=== PATIENT | male | born 1975 | race Hispanic/Latino ===

== ENCOUNTER 2017-06-03 23:13 | Observation (INO) | payer SELFPAY ==
--- NOTE | 2017-06-03 23:53 | RAD ---
PORTABLE CHEST: History: Chest pain and shortness of breath. Comparison: 08-20-10 FINDINGS: Heart size and mediastinum are within normal limits. The lungs are clear of infiltrates. IMPRESSION: No active intrathoracic disease. POS: [facility]
[2017-06-04 00:18] LABS: #Eosinphils 0.1 thou/uL (0.0-0.7); #Lymphocytes 1.6 thou/uL (1.20-3.40); #Monocytes 0.6 thou/uL (0.11-0.59); #Neutrophils 4.8 thou/uL (1.40-6.50); %Basophils 0.4 % (0.0-1.0); %Eosinophils 1.1 % (0.0-10.0); %Lymphocytes 22.9 % (21.0-51.0); %Monocytes 8.3 % (0.0-10.0); %Neutrophils 67.2 % (42.0-75.0); Hemoglobin 15.3 g/dL (14.0-18.0); Mean Corpuscular HGB CONC 36.7 g/dL (32.0-36.0); Mean Corpuscular Hemoglobin 33.2 pg (27.0-31.0); Mean Corpuscular Volume 90.5 fl (80.0-94.0); Mean Platelet Volume 8.2 fL (7.4-10.4); Platelet Count 151 thou/uL (130-400); RBC Distribution Width 11.3 % (11.5-14.5); Red Blood Cell (RBC) Count 4.59 mill/uL (4.70-6.10); White Blood Cell (WBC) Count 7.1 thou/uL (4.8-10.8)
[2017-06-04 00:30] LABS: ALT (SGPT) 28 U/L (8-55); AST (SGOT) 21 U/L (5-34); Albumin 3.9 g/dL (3.5-5.0); Alkaline Phosphatase 98 U/L (40-150); Anion Gap 13 mmol/L (10-20); BUN (Urea Nitrogen) 11 mg/dL (8.9-20.6); Bilirubin, Total 0.5 mg/dL (0.2-1.2); CK (CPK) 35 U/L (30-200); Calc. Creatinine Clearance 0 mL/min (70-130); Calcium 8.7 mg/dL (7.8-10.44); Carbon Dioxide 22 mmol/L (22-29); Chloride 106 mmol/L (98-107); Estimated GFR-MDRD Greater than 90; Globulin 3.1 g/dL (2.4-3.5); Glucose 319 mg/dL (70-105); Potassium 3.9 mmol/L (3.5-5.1); Sodium 137 mmol/L (136-145)
[2017-06-04 00:33] LABS: CKMB 0.5 ng/mL (0-6.6); Troponin I Less than 0.010 ng/mL (< 0.028)
[2017-06-04 04:20] LABS: Troponin I Less than 0.010 ng/mL (< 0.028)
[2017-06-04] MEDS ORDERED: Acetaminophen 325 MG TAB PO PRN (04:36)
[2017-06-04] MEDS ORDERED: Ondansetron ODT 4 MG TAB SL PRN (04:36)
[2017-06-04] MEDS ORDERED: Ondansetron HCl/PF 4 MG/2 ML Vial IVP PRN (04:36)
[2017-06-04 05:39] VITALS: BMI 26.5
[2017-06-04 07:12] LABS: Troponin I 0.013 ng/mL (< 0.028)
--- NOTE | 2017-06-04 11:48 | NM ---
CARDIAC SPECT: HISTORY: A 42-year-old male with chest pain, diabetes mellitus. TECHNIQUE: A myocardial perfusion scan was performed using the single-isotope 1-day protocol with Technetium 99m sestamibi. 11 mCi were injected intravenously for the rest exam followed by 32 mCi for the stress s tudy. Exercise stress was monitored and interpreted by Amarjit Vargas, Nurse Practitioner. FINDINGS: Homogeneous tracer distribution is seen in the myocardial segments on stress and rest images without fixed or reversible defects. GATED SPECT LVEF: 82%. WALL MOTION EXAM: Normal. IMPRESSION: Normal myocardial perfusion scan. POS: [facility]
[2017-06-04 12:30] VITALS: BP 131/74; TEMP 98.4
[2017-06-04] MEDS ORDERED: Dextrose 50% Abboject 50 ML SYRINGE SLOW IVP PRN (13:21)
[2017-06-04] MEDS ORDERED: Insulin Regular 300 UNITS/3 ML VIAL SC PRN ×2 (13:21)
[2017-06-04] MEDS ORDERED: Dextrose 5% in Water 1,000 ML IV PRN (13:21)
[2017-06-04] MEDS ORDERED: glipiZIDE 5 MG TAB PO SCH (13:30)
--- NOTE | 2017-06-04 14:20 | SS ---
DATE OF ADMISSION: 06/04/2017 DATE OF DISCHARGE: 06/04/2017 PRIMARY CARE PHYSICIAN: [facility]. CHIEF COMPLAINT: Chest discomfort. HISTORY OF PRESENT ILLNESS: The patient is a 42-year-old male with a recent dental abscess, on clind amycin, presented to the emergency room with chest discomfort. The chest discomfort started around 1 0:30 p.m. while he was driving. It was pressure-like, substernal, associated with some shortness of breath and lightheadedness. He denies any passing out. No palpitations, fevers, chills, heartburn, dyspepsia, cough, shortness of breath, or wheezing reported. In the emergency room, his initial vital signs showed temperature 97.6 with respirations 17, pulse ra te of 100 with blood pressure 111/73. His initial blood sugar was 319. Patient has no history of di abetes. PAST MEDICAL HISTORY: Reviewed with the patient and none except for recent dental abscess, currently taking clindamycin PAST SURGICAL HISTORY: I and D of abscess in the left arm in the past. ALLERGIES: No known drug allergies. CURRENT HOME MEDICATION: Clindamycin for dental abscess. SOCIAL HISTORY: The patient currently lives at home. Denies any smoking, alcohol, or drug use. FAMILY HISTORY: Negative for premature coronary artery disease. REVIEW OF SYSTEMS: The following complete review of systems was negative, unless otherwise mentioned in the HPI or below: Constitutional: Weight loss or gain, ability to conduct usual activities. Sk in: Rash, itching. Eyes: Double vision, pain. ENT/Mouth: Nose bleeding, neck stiffness, pain, te nderness. Cardiovascular: Palpitations, dyspnea on exertion, orthopnea. Respiratory: Shortness of breath, wheezing, cough, hemoptysis, fever, or night sweats. Gastrointestinal: Poor appetite, abdo elyssa pain, heartburn, nausea, vomiting, constipation, or diarrhea. Genitourinary: Urgency, frequen cy, dysuria, nocturia. Musculoskeletal: Pain, swelling. Neurologic/Psychiatric: Anxiety, depressi on. Allergy/Immunologic: Skin rash, bleeding tendency. PHYSICAL EXAMINATION: VITAL SIGNS: As discussed above. GENERAL: A 42-year-old male in no apparent distress. HEENT: Head, atraumatic and normocephalic. Sclerae are anicteric. Moist mucous membranes. No oral lesion. NECK: Supple. No JVD appreciated. No carotid bruit. LUNGS: Clear to auscultation bilaterally. HEART: S1 and S2 present. Regular rate and rhythm. No murmurs, rubs, or gallops appreciated. ABDOMEN: Soft, nontender, bowel sounds present. EXTREMITIES: No edema or calf tenderness. NEUROLOGIC: Grossly nonfocal. Moves all 4 extremities. PSYCHIATRIC: Alert, awake, oriented x3. SKIN: Warm and dry. LYMPH NODES: No palpable lymph nodes in the neck. PERIPHERAL VASCULAR: Radial pulses palpable bilaterally. MUSCULOSKELETAL: No joint swelling or tenderness. LABORATORY FINDINGS: CBC showed WBC of 7.1 with hemoglobin of 15.3 and platelets 151. D-dimer was 0 .30. Troponins negative. LFTs in normal range. Chemistries showed sodium 137, potassium 3.9, chlor jeff 106, bicarbonate 22, BUN 11, creatinine 0.85. EKG, by my review, was negative for acute findings . It showed sinus rhythm. Chest x-ray, by my review, was negative for infiltrate or edema. IMPRESSION: Chest discomfort. The patient was admitted last night by the overnight physician and st ress test was already ordered. He underwent Cardiolite stress test that was negative for reversible ischemia. No wall motion abnormality. He is chest pain free at this time. IMPRESSION: 1. New onset diabetes mellitus, type 2. Hemoglobin A1c has been added to his morning laboratories. It is pending at this time. He has been started on glipizide and metformin. Side effects of medica tions will be discussed. Dietitian has been consulted for education. 2. Recent dental abscess, currently on antibiotic. 3. Suspected anxiety as a cause of chest pain. Primary care physician advised to follow. Plan of care was discussed with the patient in detail. He stated understanding. The patient will fo llow up with [facility]. Lifestyle modification and diabetic diet recommended. The patie nt and the family stated understanding.
[2017-06-04 15:44] LABS: Hemoglobin A1c 10.5 % (4.0-6.0)
[2017-06-04] MEDS ORDERED: metFORMIN 500 MG TAB PO SCH (17:00)
[2017-06-05] MEDS ORDERED: glipiZIDE 5 MG TAB PO SCH (07:30)
[2017-06-05] MEDS ORDERED: FLU VACC QS2017-18 36 mo. & older 0.5 ML SYRINGE IM ONE (09:00)
--- NOTE | 2017-06-08 13:47 | EKG ---
Test Reason : Blood Pressure : / mmHG Vent. Rate : 097 BPM Atrial Rate : 097 BPM P-R Int : 152 ms QRS Dur : 086 ms QT Int : 344 ms P-R-T Axes : 044 -23 006 degrees QTc Int : 436 ms Normal sinus rhythm Normal ECG Confirmed by NIYAH BHATTI ([id number]), editorial project manager JOSÉ SOSA ([id number]) on 06/08/2017 1:47:05 PM Referred By: Confirmed By:NIYAH BHATTI
== END 2017-06-04 15:58 | disposition home or self-care (01) ==
LOC: ERS 23:13 → 2SW 06-04 03:20
PROVIDERS: ADMIT Family Medicine; ATTEND Family Medicine
DX: R07.89 Other chest pain (principal); K04.7 Periapical abscess without sinus; E11.9 Type 2 diabetes mellitus without complications; Z79.2 Long term (current) use of antibiotics; Z98.890 Other specified postprocedural states
CPT/HCPCS: 36415; 36416; 71045; 78452; 80053; 82553; 83036; 84484; 85025; 85379; 93005; 93017; A9500; G0378

== ENCOUNTER 2017-06-28 18:26 | Emergency (ER) | payer SELFPAY ==
[2017-06-28 18:56] LABS: #Eosinphils 0.1 thou/uL (0.0-0.7); #Lymphocytes 2.3 thou/uL (1.20-3.40); #Monocytes 0.4 thou/uL (0.11-0.59); %Basophils 0.4 % (0.0-1.0); %Lymphocytes 29.6 % (21.0-51.0); %Monocytes 5.5 % (0.0-10.0); %Neutrophils 63.6 % (42.0-75.0); Hemoglobin 17.5 g/dL (14.0-18.0); Mean Corpuscular HGB CONC 34.8 g/dL (32.0-36.0); Mean Corpuscular Hemoglobin 32.2 pg (27.0-31.0); Mean Corpuscular Volume 92.6 fl (80.0-94.0); Platelet Count 168 thou/uL (130-400); RBC Distribution Width 11.8 % (11.5-14.5); Red Blood Cell (RBC) Count 5.43 mill/uL (4.70-6.10); White Blood Cell (WBC) Count 7.8 thou/uL (4.8-10.8)
[2017-06-28 19:10] LABS: ALT (SGPT) 49 U/L (8-55); AST (SGOT) 34 U/L (5-34); Albumin 4.8 g/dL (3.5-5.0); Alkaline Phosphatase 94 U/L (40-150); Anion Gap 14 mmol/L (10-20); BUN (Urea Nitrogen) 16 mg/dL (8.9-20.6); Bilirubin, Total 0.5 mg/dL (0.2-1.2); CK (CPK) 67 U/L (30-200); Calc. Creatinine Clearance 0 mL/min (70-130); Calcium 9.8 mg/dL (7.8-10.44); Carbon Dioxide 26 mmol/L (22-29); Chloride 100 mmol/L (98-107); Estimated GFR-MDRD 59; Globulin 3.8 g/dL (2.4-3.5); Glucose 294 mg/dL (70-105); Protein, Total 8.6 g/dL (6.0-8.3); Sodium 136 mmol/L (136-145)
--- NOTE | 2017-06-28 19:12 | RAD ---
PORTABLE CHEST: 06/28/17 HISTORY: Chest pain. Lungs are clear. Heart and mediastinum appear normal. Vasculature is normal. IMPRESSION: No evidence of acute abnormality. POS: [facility]
[2017-06-28 19:15] LABS: CKMB 1.2 ng/mL (0-6.6); Troponin I Less than 0.010 ng/mL (< 0.028)
== END 2017-06-28 21:25 | disposition home or self-care (01) ==
LOC: ERS 18:26
DX: R00.2 Palpitations (principal); E11.9 Type 2 diabetes mellitus without complications
CPT/HCPCS: 71045; 80053; 82553; 84484; 85025; 93005; 94760

== ENCOUNTER 2017-07-29 01:04 | Emergency (ER) | payer SELFPAY ==
[2017-07-29 01:46] LABS: Red Blood Cell (RBC) Count 4.91 mill/uL (4.70-6.10)
[2017-07-29 01:47] LABS: #Eosinphils 0.1 thou/uL (0.0-0.7); #Lymphocytes 2.4 thou/uL (1.20-3.40); #Monocytes 0.5 thou/uL (0.11-0.59); #Neutrophils 4.9 thou/uL (1.40-6.50); %Basophils 0.5 % (0.0-1.0); %Eosinophils 1.3 % (0.0-10.0); %Lymphocytes 30.1 % (21.0-51.0); %Monocytes 6.7 % (0.0-10.0); %Neutrophils 61.5 % (42.0-75.0); Hemoglobin 15.9 g/dL (14.0-18.0); Mean Corpuscular HGB CONC 35.7 g/dL (32.0-36.0); Mean Corpuscular Hemoglobin 32.4 pg (27.0-31.0); Mean Corpuscular Volume 90.8 fl (80.0-94.0); Mean Platelet Volume 7.6 fL (7.4-10.4); Platelet Count 162 thou/uL (130-400); RBC Distribution Width 11.5 % (11.5-14.5)
[2017-07-29 02:11] LABS: CKMB 0.7 ng/mL (0-6.6); Troponin I Less than 0.010 ng/mL (< 0.028)
[2017-07-29 02:14] LABS: ALT (SGPT) 36 U/L (8-55); AST (SGOT) 18 U/L (5-34); Albumin 4.1 g/dL (3.5-5.0); Alkaline Phosphatase 88 U/L (40-150); Anion Gap 14 mmol/L (10-20); BUN (Urea Nitrogen) 16 mg/dL (8.9-20.6); Bilirubin, Total 0.3 mg/dL (0.2-1.2); Calc. Creatinine Clearance 0 mL/min (70-130); Calcium 9.3 mg/dL (7.8-10.44); Carbon Dioxide 22 mmol/L (22-29); Chloride 103 mmol/L (98-107); Estimated GFR-MDRD 71; Globulin 2.9 g/dL (2.4-3.5); Glucose 352 mg/dL (70-105); Potassium 4.6 mmol/L (3.5-5.1); Sodium 134 mmol/L (136-145)
[2017-07-29 03:28] LABS: Bilirubin Negative (Negative); Blood, Urine Negative (Negative); Clarity CLEAR (Clear); Glucose, Urine (Dipstick) >=1000 mg/dL (Negative); Leukocyte Negative (Negative); Nitrite Negative (Negative); Protein, Urine (Dipstick) Negative (Neg-Trace); Specific Gravity, Urine 1.027 (1.002-1.036); Urobilinogen 0.2 mg/dL (0.2-1.0)
[2017-07-29] MEDS ORDERED: Insulin Regular 300 UNITS/3 ML VIAL ONE (03:29)
== END 2017-07-29 04:25 | disposition home or self-care (01) ==
LOC: ERS 01:04
DX: E11.65 Type 2 diabetes mellitus with hyperglycemia (principal)
CPT/HCPCS: 36415; 36416; 80053; 81003; 82010; 82553; 84484; 85025; 93005; 96361; 96374; J1815

== ENCOUNTER 2019-01-05 02:40 | Emergency (ER) | payer SELFPAY | END 2019-01-05 04:08 | disposition home or self-care (01) | LOC: ERS 02:40 | DX: K04.7 Periapical abscess without sinus (principal); E11.9 Type 2 diabetes mellitus without complications; L03.211 Cellulitis of face | CPT/HCPCS: 99283 ==

== ENCOUNTER 2024-05-01 04:03 | Inpatient (IN) | payer SELFPAY ==
[2024-05-01 06:10] LABS: #Basophils 0.03 10x3/uL (0.0-0.2); %Basophils 0.4 % (0.0-1.0); %Eosinophils 2.1 % (0.0-10.0); %Lymphocytes 19.7 % (21.0-51.0); %Monocytes 8.8 % (0.0-10.0); %Neutrophils 68.7 % (42.0-75.0); Hematocrit 39.7 % (42.0-52.0); Hemoglobin 14.3 g/dL (14.0-18.0); Mean Corpuscular Volume 85.9 fL (78.0-98.0); Mean Platelet Volume 10.3 fL (7.4-10.4); Platelet Count 169 10x3/uL (130-400); RBC Distribution Width 12.2 % (11.5-14.5); Red Blood Cell (RBC) Count 4.62 mill/uL (4.70-6.10)
[2024-05-01] MEDS ORDERED: Cefepime 2 GM VIAL ONE (06:16)
[2024-05-01] MEDS ORDERED: Sodium Chloride 0.9% 100 ML ONE (06:16)
[2024-05-01 06:22] LABS: Analyzer IN Cardio ER; Base Excess -1.4 mEq/L (-2.0 to +3.0); Calcium, Ionized (venous) 1.16 mmol/L (1.16-1.32); Chloride (VBG) 102 mmol/L (98-106); Hematocrit-VBG 47 % (42.0-52.0); Hemoglobin (Hb) 15.9 g/dL (13.1-17.2); Potassium (VBG) 4.13 mmol/L (3.70-5.30); Sodium 138 mmol/L (133-146); pH (venous) 7.367 (7.32-7.43)
[2024-05-01 06:28] LABS: ALT (SGPT) 19 U/L (8-55); AST (SGOT) 15 U/L (5-34); Albumin 3.6 g/dL (3.5-5.0); Alkaline Phosphatase 77 U/L (40-110); Anion Gap 12 mmol/L (10-20); BUN (Urea Nitrogen) 15 mg/dL (8.9-20.6); Bilirubin, Total 0.7 mg/dL (0.2-1.2); Calc. Creatinine Clearance 0 mL/min (70-130); Calcium 8.9 mg/dL (7.8-10.44); Carbon Dioxide 21 mmol/L (22-29); Chloride 106 mmol/L (98-107); Estimated GFR 108; Globulin 3.6 g/dL (2.4-3.5); Glucose 249 mg/dL (70-105); Magnesium 2.2 mg/dL (1.6-2.6); Potassium 4.2 mmol/L (3.5-5.1); Protein, Total 7.2 g/dL (6.0-8.3); Sodium 135 mmol/L (136-145)
[2024-05-01] MEDS ORDERED: Dextrose 50% Abboject 50 ML SYRINGE SLOW IVP PRN (09:18)
[2024-05-01] MEDS ORDERED: Senokot S 8.6-50 MG TAB PO PRN (09:18)
[2024-05-01] MEDS ORDERED: Dextrose 5% in Water 1,000 ML IV PRN (09:18)
[2024-05-01] MEDS ORDERED: Acetaminophen 325 MG TAB PO PRN (09:18)
[2024-05-01] MEDS ORDERED: Ketorolac Tromethamine 30 MG (1 mL) VIAL IVP PRN (09:18)
[2024-05-01] MEDS ORDERED: Glucagon 1 MG/ML KIT IM PRN (09:18)
[2024-05-01] MEDS ORDERED: Ondansetron ODT 4 MG TAB PO PRN ×2 (09:18→09:22)
[2024-05-01] MEDS ORDERED: Acetaminophen 650 MG Suppository PR PRN (09:18)
[2024-05-01] MEDS ORDERED: Calcium Carbonate 500 MG ChewTAB PO PRN (09:18)
[2024-05-01] MEDS ORDERED: Ondansetron PF 4 MG/2 ML Vial IVP PRN ×2 (09:18→09:23)
[2024-05-01] MEDS: Vancomycin (BATCH) 1.5 GM in Premix 1 BAG IVPB SCH (10:13)
[2024-05-01] MEDS: Cefepime 2 GM in Sodium Chloride 0.9% 100 ML IVPB SCH (16:38)
[2024-05-01] MEDS: Vancomycin (BATCH) 1.25 GM in Premix 1 BAG IVPB SCH (17:54)
[2024-05-01] MEDS: Insulin Lispro 100 UNIT/ML 10 ML VIAL SC PRN (17:57)
[2024-05-01] MEDS ORDERED: Cefepime 1 GM in Sodium Chloride 0.9% 100 ML IVPB SCH (18:00)
[2024-05-01] MEDS ORDERED: Vancomycin 1 GM in Premix 1 BAG IVPB SCH (21:00)
[2024-05-02 06:34] LABS: #Basophils 0.03 10x3/uL (0.0-0.2); %Basophils 0.4 % (0.0-1.0); %Eosinophils 2.2 % (0.0-10.0); %Lymphocytes 21.6 % (21.0-51.0); %Monocytes 7.4 % (0.0-10.0); %Neutrophils 68.1 % (42.0-75.0); Hematocrit 38.1 % (42.0-52.0); Hemoglobin 13.8 g/dL (14.0-18.0); Mean Corpuscular HGB CONC 36.2 g/dL (32.0-36.0); Mean Corpuscular Hemoglobin 31.4 pg (27.0-31.0); Mean Corpuscular Volume 86.8 fL (78.0-98.0); Mean Platelet Volume 10.3 fL (7.4-10.4); Platelet Count 175 10x3/uL (130-400); RBC Distribution Width 12.1 % (11.5-14.5); Red Blood Cell (RBC) Count 4.39 mill/uL (4.70-6.10)
[2024-05-02 06:57] LABS: Vancomycin, Random 10.9 ug/mL (See Comment)
[2024-05-02 07:00] LABS: Anion Gap 11 mmol/L (10-20); BUN (Urea Nitrogen) 15 mg/dL (8.9-20.6); Calc. Creatinine Clearance 114 mL/min (70-130); Calcium 8.6 mg/dL (7.8-10.44); Carbon Dioxide 21 mmol/L (22-29); Chloride 108 mmol/L (98-107); Estimated GFR 110; Glucose 259 mg/dL (70-105); Potassium 4.1 mmol/L (3.5-5.1); Sodium 136 mmol/L (136-145)
[2024-05-02] MEDS: Enoxaparin 40 MG (0.4 mL) SYRINGE SC SCH (08:31)
[2024-05-02 10:23] VITALS: BMI 23.5
[2024-05-02] MEDS: Acetaminophen 325 MG TAB PO PRN (16:22)
[2024-05-02] MEDS: metFORMIN 500 MG TAB PO SCH (16:23)
[2024-05-02] MEDS: Insulin Lispro 100 UNIT/ML 10 ML VIAL SC PRN (20:37)
[2024-05-03 06:11] LABS: Anion Gap 13 mmol/L (10-20); BUN (Urea Nitrogen) 16 mg/dL (8.9-20.6); Calc. Creatinine Clearance 105 mL/min (70-130); Calcium 8.9 mg/dL (7.8-10.44); Carbon Dioxide 22 mmol/L (22-29); Chloride 104 mmol/L (98-107); Estimated GFR 107; Glucose 250 mg/dL (70-105); Potassium 4.3 mmol/L (3.5-5.1); Sodium 135 mmol/L (136-145)
[2024-05-03] MEDS: glipiZIDE 5 MG TAB PO SCH ×2 (09:06→17:15)
[2024-05-04 07:20] LABS: Vancomycin, Random 32.1 ug/mL (See Comment)
[2024-05-04 08:29] VITALS: BP 107/71; TEMP 98
[2024-05-04] MEDS: FLU (Fluarix Triv) TS24-25(6MOS UP)/PF 45 MCG/0.5 ML Syringe IM ONE (08:34)
== END 2024-05-04 10:40 | disposition home or self-care (01) | DRG 603 ==
LOC: ERS 04:03 → T4-A 09:22 → OBSVTOIN 05-02 14:46
PROVIDERS: ADMIT Internal Medicine; ATTEND Family Medicine
DX: L03.115 Cellulitis of right lower limb (principal); E11.9 Type 2 diabetes mellitus without complications; Z79.899 Other long term (current) drug therapy
CPT/HCPCS: 36415; 36416; 80048; 80053; 80202; 82565; 82805; 83036; 83605; 83735; 85025; 87040; 93005; 96361; 96365; 96366; 96367; J0692; J1650; J1815; J3370

== ENCOUNTER 2025-03-25 15:53 | Emergency (ER) | payer SELFPAY ==
[2025-03-25 18:33] LABS: #Basophils 0.05 10x3/uL (0.0-0.2); #Eosinophils 0.12 10x3/uL (0.0-0.7); #Monocytes 0.59 10x3/uL (0.11-0.59); #Neutrophils 5.10 10x3/uL (1.40-6.50); %Basophils 0.6 % (0.0-1.0); %Eosinophils 1.5 % (0.0-10.0); %Lymphocytes 28.8 % (21.0-51.0); %Monocytes 7.1 % (0.0-10.0); %Neutrophils 61.8 % (42.0-75.0); Hematocrit 42.2 % (42.0-52.0); Hemoglobin 14.8 g/dL (14.0-18.0); Mean Corpuscular Hemoglobin 30.5 pg (27.0-31.0); Mean Corpuscular Volume 86.8 fL (78.0-98.0); Platelet Count 179 10x3/uL (130-400); Red Blood Cell (RBC) Count 4.86 mill/uL (4.70-6.10); White Blood Cell (WBC) Count 8.26 10x3/uL (4.8-10.8)
[2025-03-25 18:56] LABS: ALT (SGPT) 15 U/L (Less than 45); AST (SGOT) 21 U/L (11-34); Albumin 3.9 g/dL (3.1-4.5); Alkaline Phosphatase 95 U/L (40-110); Anion Gap 17 mmol/L (10-20); BUN (Urea Nitrogen) 20 mg/dL (8.4-25.7); Bilirubin, Total 0.3 mg/dL (0.3-1.2); Calc. Creatinine Clearance 0 mL/min (70-130); Calcium 9.2 mg/dL (7.8-10.44); Carbon Dioxide 24 mmol/L (22-29); Chloride 101 mmol/L (98-107); Globulin 3.8 g/dL (2.4-3.5); Glucose 316 mg/dL (70-105); Potassium 3.8 mmol/L (3.5-5.1); Sodium 138 mmol/L (136-145)
== END 2025-03-25 19:20 | disposition home or self-care (01) ==
LOC: ERS 15:53
DX: M54.6 Pain in thoracic spine (principal); R05.9 Cough, unspecified; E11.65 Type 2 diabetes mellitus with hyperglycemia
CPT/HCPCS: 36416; 71046; 80053; 85025; 96360